=== PATIENT | female | born 1985 | race Two or more races ===

== ENCOUNTER 2025-08-20 19:34 | Emergency (ER) | payer OTHER ==
[~2025-08-20] VITALS: Ht 167.6 cm; Wt 67.7 kg
[2025-08-20 21:41] LABS: Urine Protein, UAD Negative (Negative)
[2025-08-20] MEDS ORDERED: ACET500T58 PO (22:51)
[2025-08-20] MEDS ORDERED: OSEL75CA5 PO (22:51)
--- NOTE | 2025-08-20 22:51 | ED.PDOC ---
History of Present Illness HPI Comments 39 year old female presents to ER with complaints of flu-like symptoms x 3 days. Patient reports she has been experiencing mild cough, intermittent fever, congestion and decreased appetite x 3 days. Denies use of medications for current symptoms and presents to ER afebrile, ambulatory, with steady gait, in no distress. Notes she has been in close contact with her son who just tested positive for influenza today and notes her son is experiencing the same symptoms. Denies headache, shortness of breath, chest pain, sore throat, earache, nausea/vomiting, abdominal pain, changes in urination/BM or any further symptoms/complaints Chief Complaint: Flu like Time Seen by MD: 19:58 Primary Care Provider: UNKNOWN Reviewed Notes: Nurses Notes, Medications, Allergies Information Source: Patient Mode of Arrival: Ambulatory Past Medical History PAST MEDICAL HISTORY: Denies Surgical History: Denies all surgeries INFORMATICS PHYSICIAN History: No Pertinent INFORMATICS PHYSICIAN History Family History Family History: Unknown Social History Smoker: Non-Smoker Alcohol: Denies ETOH Use Drugs: Denies Drug Use Lives In: Home Constitutional: See HPI EENTM: See HPI Respiratory: See HPI Cardiovascular: No Symptoms Reported Gastrointestinal: See HPI Genitourinary: No Symptoms Reported Neurological: No Symptoms Reported Musculoskeletal: No Symptoms Reported Integumentary: No Symptoms Reported Allergic/Immunocompromised: others (Denies ) Hematologic/Lymphatic: No Symptoms Reported Endocrine: No Symptoms Reported Psychiatric: No symptoms Reported Physical Exam General Appearance: No Apparent Distress HEENT: Normal ENT Inspection, PERRL/EOMI, Pharynx Normal, TMs Normal Neck: Full Range of Motion, Non-Tender, Normal Respiratory: Chest Non-Tender, Lungs Clear, No Accessory Muscle Use, No Resp iratory Distress, Normal Breath Sounds Cardiovascular: No Murmur, No Gallop, Regular Rate/Rhythm Breast Exam: Deferred Gastrointestinal: Non Tender, No Pulsatile Mass, Soft Genitalia: Deferred Pelvic: Deferred Rectal: Deferred Extremities: Normal capillary refill, Normal range of motion Neurologic: Alert, No Motor Deficits, Normal Affect, Normal Mood, No Sensory Deficits Cerebellar Function: Normal Reflexes: Normal Skin: Dry, Normal Color, Warm Peripheral Pulses: 2+ Radial (R), 2+ Radial (L), 2+ Brachial (R), 2+ Brachial (L) Lymphatic: No Adenopathy Was a procedure done? Was a procedure done?: No Sedation Sedation?: No Fever Differential Dx Differential Diagnosis: Pneumonia, Sepsis, Pharyngitis, Other (COVID-19) X-Ray, Labs, Meds, VS Vital Signs Date Time Temp Pulse Resp B/P (MAP) Pulse Ox O2 Delivery O2 Flow Rate FiO2 08/20/25 19:44 98.3 99 18 125/84 98 98.3 Lab Test 08/20/25 21:14 Range/Units Urine Color Light-yellow Yellow Urine Clarity Turbid H Clear Urine pH 5.5 5.0-9.0 Urine Specific [place] 1.009 1.001-1.035 Urine Protein Negative Negative Urine Ketones 1+ H Negative Urine Blood Trace H Negative /uL Urine Nitrite Negative Negative Urine Bilirubin Negative Negative Urine Urobilinogen Normal Negative mg/dL Urine Leukocyte Esterase Negative Negative /uL Urine RBC 3 0 - 4 /hpf Urine Microscopic WBC 7 H 0-5 /HPF Urine Squamous Epithelial Cells Few <5 /hpf Urine Bacteria Mod H None Seen /hpf Urine Glucose Normal Normal mg/dL Urinalysis reviewed without any significant abnormalities Influenza testing not performed due to limited availability of swabs in ER Clinical picture consistent with suspected influenza given symptoms and close household exposure Advised to drink plenty of fluids Advised to follow up with PCP in 1-2 days Patient verbalized understanding and agreeable with current plan of care Advised to return to ER immediately if symptoms worsen Time of 1ST Reevaluation: 22:24 Reevaluation 1ST: N/A Patient Education/Counseling: Diagnosis, Treatment, Prognosis, Need For Follow Up Family Education/Counseling: No Family Present SEPSIS Sepsis Screen Date sepsis recognized/suspect: Aug 20, 2025 Time Sepsis recognized/suspect: 1946 Recent Procedure: No On Antibiotic Therapy: No Respiratory Rate >20: No Heart Rate >90: No Temp<36 C (96.8 F) or >38.3 C: No SBP <90 or MAP <65 mmHG: No New Acute Mental Status Change: No Is the patient on CPAP, BIPAP,: No Physician Orders Rapid Influenza A&B (08/20/25 20:00) Covid19 Antigen [place] (08/20/25 ) Vital Signs Date Time Temp Pulse Resp B/P (MAP) Pulse Ox O2 Delivery O2 Flow Rate FiO2 08/20/25 19:44 98.3 99 18 125/84 98 98.3 Departure 1 Departure Time of Disposition: 22:50 Impression: Primary Impression: Influenza-like illness Additional Impression: Exposure to influenza Disposition: HOME / SELF CARE / HOMELESS Condition: Stable e-Prescriptions Acetaminophen (Acetaminophen) 500 Mg Tab 500 MG PO Q4HPRN, #30 TAB 0 Refills Prov: RADHA BERNARDO 08/20/25 Oseltamivir Phosphate (Tamiflu) 75 Mg Cap 1 CAP PO BID for 5 Days, #10 CAP 0 Refills Prov: RADHA BERNARDO 08/20/25 Discharged With: Self Critical Care Note Critical Care Time?: No Stability Stability form required: No Heart Score Heart Score: Heart Score Response (Comments) Value History N/A 0 EKG N/A 0 Age N/A 0 Risk Factors N/A 0 Troponin N/A 0 Total 0 RADHA BERNARDO Aug 20, 2025 22:51
[2025-08-20 22:58] VITALS: BP 113/75; PULSE 101; RESP 18; TEMP 99.1; O2SAT 98
== END 2025-08-20 23:18 | disposition home or self-care (01) ==
LOC: ER 19:34
DX: J11.1 Influenza due to unidentified influenza virus with other respiratory manifestations (principal); Z20.828 Contact with and (suspected) exposure to other viral communicable diseases
CPT/HCPCS: 81001